=== PATIENT | female | born 1985 | race Caucasian/White ===

== ENCOUNTER 2022-11-07 07:56 | Inpatient (IN) ==
[2022-11-07] MEDS ORDERED: LABETALOL HCL 100 MG TAB ONE (08:58)
[2022-11-07] MEDS ORDERED: LACTATED RINGER'S 1,000 ML IV PRN (09:23)
[2022-11-07] MEDS ORDERED: OXYTOCIN 30 UNITS/500 ML BAG IV PRN (09:23)
[2022-11-07] MEDS ORDERED: LIDOCAINE 1% LOCAL 20 ML VIAL INFIL PRN (09:23)
--- NOTE | 2022-11-07 09:35 | Anesthesiology Consultation ---
Date of Service November 07, 2022 Assessment & Plan (1) Encounter for pre-operative examination: Chart Review Chart Review: Acceptable Risk for Surgery and Patient NOT seen in Pre Admission Testing History Height/Weight Height: 5 ft 6 in Weight: 83.007 kg Allergies Allergy/AdvReac Type Severity Reaction Status Date / Time augmentin Allergy Rash Uncoded 08/06/22 09:32 Medications Home Medications Medication Instructions Recorded Confirmed Last Taken prenat.vits,abdoulaye,rrs-[id number] 1 tab PO DAILY 04/20/22 11/04/22 11/07/22 08:00 labetalol 200 mg tablet 200 mg PO TID 11/04/22 11/07/22 11/07/22 09:00 200 nifedipine 30 mg tablet,extended 30 mg PO DAILY 11/04/22 11/04/22 11/06/22 21:00 release 24 hr (Procardia XL) Past Medical History Medical History No pertinent past medical history Past Family History Family History Father Hypertension Past Surgical History Surgical History H/O oral surgery Hx of section S/P wisdom tooth extraction Social History Smoking Status: Never smoker Do You Dip or Chew Tobacco: No Hx Alcohol Use: No Hx Substance Use: No substance use type: does not use Physical Exam Vital Signs Last Vital Signs Temp 99.5 F 11/07/22 08:15 Pulse 96 H 11/07/22 08:15 Resp 18 11/07/22 08:15 BP 134/83 11/07/22 08:15
[2022-11-07] MEDS ORDERED: CITRIC ACID/SODIUM CITRATE 15 ML UDC PO STA (09:36)
--- NOTE | 2022-11-07 09:40 | History & Physical Report ---
Date of Service November 07, 2022 History of Present Illness Chief Complaint: Intrauterine 37 weeks 3 days. Vaginal bleeding. Hypertension controlled on 2 different medications Primary Care Provider: NO PCP Patient is a 37-year-old 2 para 1. Her first was complicated by worsening hypertension failed induction and delivery at 38 weeks by section. At this time she delivered a live female infant 5 pounds 7ounces. Her last menstrual period for this is February 20, 2022. Her due date for this is 11/26/2022. This has been complicated by worsening hypertension. At this time she is on Procardia 30 mg XL and labetalol 200 mg 3 times a day. She called stating that she had vaginal bleeding. She was brought to maternity and placed on the monitor. Pelvic exam revealed a moderate amount of bleeding. And an unripe cervix. Patient is presently being scheduled for repeat section. Allergies Allergy/AdvReac Type Severity Reaction Status Date / Time augmentin Allergy Rash Uncoded 08/06/22 09:32 Home Medications Medication Instructions Recorded Confirmed Type prenat.vits,abdoulaye,pcd-rrwg-jajvf 1 tab PO DAILY 04/20/22 11/04/22 History labetalol 200 mg tablet 200 mg PO TID 11/04/22 11/07/22 History nifedipine 30 mg tablet,extended 30 mg PO DAILY 11/04/22 11/04/22 History release 24 hr (Procardia XL) Past Med/Surg History Medical History (Updated 11/07/22 @ 09:35 by Robert Pride DO) No pertinent past medical history Surgical History H/O oral surgery Hx of section S/P wisdom tooth extraction Family History Father Hypertension Social History Smoking Status: Never smoker Second Hand Exposure: No; Do You Dip or Chew Tobacco: No; Hx Alcohol Use: No Hx Substance Use: No Preferred Language: Setswana Desk Manager Required: No Beliefs That Will Affect Care: None marital status: marital status details: Man (35) [phone] Current Living Situation: Spouse Current Living Situation Comment: - Man, Daughter- Paige- 3 y/o current occupational status: employed current occupation: self employed Feels Safe at Home: Yes Assistive Devices: None Physical Exam Physical Exam: Patient is well-developed well-nourished 37-year-old white female alert oriented x3 in no acute distress. Heart had a regular rhythm S1 and S2 were normal. Lungs were clear to auscultation and percussion. Ears had a normal light reflex bilaterally. Trachea was midline. There was no adenopathy. Abdomen was soft and nontender. Gravid uterus consistent with a 37 weeks gestational size fetus. Well-healed Pfannenstiel incisional scar. No CVA tenderness. No calf tenderness. Pelvic exam revealed a vertex presentation cervix was posterior closed and uneffaced. There was a moderate amount of bleeding present. Results & Data Results & Data Vital Signs (Past 12 Hours) Vital Signs Temp Pulse Resp BP 11/07/22 08:10 96 H 134/83 11/07/22 08:15 37.5 C 96 H 18 134/83
[2022-11-07] MEDS ORDERED: ONDANSETRON INJ 2 MG/ML 2 ML VIAL ONE (09:54)
[2022-11-07] MEDS ORDERED: KETOROLAC 30 MG/ML VIAL ONE (09:54)
[2022-11-07] MEDS ORDERED: MoRPHine SULFATE PF 1 MG/ML 10 ML AMP/VIAL ONE (09:54)
[2022-11-07] MEDS ORDERED: OXYTOCIN 10 UNITS/ML VIAL ONE (09:54)
[2022-11-07] MEDS ORDERED: fentaNYL citrate PF 100 MCG/2 ML VIAL ONE (09:54)
[2022-11-07] MEDS ORDERED: PHENYLEPHRINE HCL 10 MG/ML VIAL ONE (09:54)
[2022-11-07 09:58] LABS: Hematocrit (blood only) 39.1 % (37.0-47.0); Hemoglobin 13.4 g/dl (12.0-16.0); Mean Corpuscular Hemoglobin 30.7 pg (25.0-34.0); Mean Corpuscular Hgb Conc 34.3 g/dL (32.0-36.0); Mean Corpuscular Volume 89.5 fL (80.0-100.0); Mean Platelet Volume 10.1 fL (9.4-12.4); Platelet Count 210 K/uL (130-400); RDW Coefficient of Variation 12.9 % (11.5-14.5); RDW Standard Deviation 42.5 fL (36.4-46.3); Red Blood Count 4.37 M/uL (4.20-5.40); White Blood Count 7.88 K/ul (4.8-10.8)
[2022-11-07] MEDS ORDERED: cefOXitin 2,000 MG in DEXTROSE 5% 50 ML IV ONE (10:00)
[2022-11-07] MEDS ORDERED: ONDANSETRON INJ 2 MG/ML 2 ML VIAL IV PRN ×2 (10:56→11:40)
[2022-11-07] MEDS ORDERED: LACTATED RINGER'S 500 ML IV PRN (10:56)
[2022-11-07] MEDS ORDERED: diphenhydrAMINE 50 MG/ML VIAL IV PRN (10:56)
[2022-11-07] MEDS ORDERED: ePHEDrine sulfate 50 MG/ML AMP IV PRN (10:56)
[2022-11-07] MEDS ORDERED: NALOXONE HCL 1 MG in SODIUM CHLORIDE 0.9% 1000ML 1,000 ML IV PRN (10:56)
[2022-11-07] MEDS ORDERED: NALBUPHINE HCL INJ 10 MG/ML AMP IV PRN (10:56)
[2022-11-07] MEDS ORDERED: HYDROmorphone INJ 0.5 MG/0.5 ML SYR IV PRN (10:56)
[2022-11-07] MEDS ORDERED: MoRPHine SULFATE PF 1 MG/ML 10 ML AMP/VIAL INT SPINAL ONE (10:56)
[2022-11-07] MEDS ORDERED: NALOXONE HCL 0.08 MG in SYRINGE 1.8 ML IV PRN (10:56)
[2022-11-07] MEDS ORDERED: NALOXONE HCL 0.4 MG/1 ML VIAL/CARP IV PRN (10:56)
[2022-11-07] MEDS ORDERED: NO NARCOTICS OR SEDATIVES SCH (11:00)
[2022-11-07] MEDS ORDERED: SODIUM CHLORIDE 0.9% 1000ML 1,000 ML IV SCH (11:00)
[2022-11-07] MEDS ORDERED: DC INTRASPINAL MORPHINE SCH (11:00)
[2022-11-07] MEDS ORDERED: OXYTOCIN 10 UNITS/ML 10ML VIAL IM ONE (11:17)
[2022-11-07] MEDS ORDERED: HYDROCORTISONE ACETATE 25 MG SUPP PR PRN (11:40)
[2022-11-07] MEDS ORDERED: MAGNESIUM HYDROXIDE SUSP 30 ML UDC PO PRN (11:40)
[2022-11-07] MEDS ORDERED: DIPHTHERIA/TETANUS/PERTUSSIS Vaccine (Tdap, Age 7+yrs) 0.5mL SYR/VL IM ONE (11:40)
[2022-11-07] MEDS ORDERED: SENNA 8.6 MG TAB PO PRN (11:40)
[2022-11-07] MEDS ORDERED: BENZOCAINE 20% SPRY 85 APPLN/85 GM CAN EXT PRN (11:40)
[2022-11-07] MEDS ORDERED: LACTATED RINGER'S 1,000 ML IV SCH (11:45)
[2022-11-07] MEDS ORDERED: ACETAMINOPHEN 1,000 MG/100 ML VIAL IV PRN (11:48)
--- NOTE | 2022-11-07 11:59 | Anesthesiology Progress Note ---
Date of Service November 07, 2022 Anesthesia Post Procedure Vital Signs Vital Signs: Temp Pulse Resp BP Pulse Ox 11/07/22 11:54 75 99 11/07/22 11:49 84 97 11/07/22 11:44 80 120/67 98 11/07/22 08:10 96 H 134/83 11/07/22 08:15 99.5 F 96 H 18 134/83 Transfer of Care Handoff Completed per policy Notes Mental Status: alert / awake / arousable and participated in evaluation Patient Amnestic to Procedure: No Nausea / Vomiting: adequately controlled Pain: adequately controlled Airway Patency, RR, SpO2: stable & adequate BP & HR: stable & adequate Hydration State: stable & adequate Neuraxial Anesthesia: was administered and sensory block is resolving Anesthetic Complications: no major complications apparent and Pt Satisfied with anesthetic care
[2022-11-07] MEDS ORDERED: LABETALOL HCL 200 MG TAB PO SCH (12:00)
--- NOTE | 2022-11-07 12:06 | Operative Report ---
Post Operative Report Procedure Date: November 07, 2022 Pre & Post Diagnosis: Intrauterine 37 weeks 3 days. Hypertension controlled on 2 different medications. Vaginal bleeding. Delivered live female infant. [] Time Out: I identified the patient and participated in the time-out. Procedure: Repeat low segment section. Surgeon: Dr. Maldonado Per Diem: Dr. Tinoco Estimated Blood Loss: [500 mL] Findings: [] Intrauterine thin lower uterine segment. Specimens [] Placenta Description of Procedure: [] Patient was brought to the OR table correctly identified by armband and conversation. Spinal anesthesia was administered. Han catheter was inserted aseptically into the bladder. Lower abdomen was painted with an alcohol-based sterilizing solution. Patient was draped in the usual sterile fashion. Level of the anesthesia was checked. Timeout was performed. Incision was made through her previous Pfannenstiel scar. Incision was carried down to the anterior fascia with sharp dissection. Hemostasis was secured by electrocauterization. Fascia was incised transversely. from the rectus muscle by blunt and sharp dissection. Rectus muscle were in the midline. Peritoneum was carefully raised and entered. Bladder retractor was used to expose the lower uterine segment. There was a thin area on the left side. Incision was made above the vesicouterine fold. Bladder was advanced out of the lower uterine segment. Lower uterine segment was scarred with a knife. Entered with a blunt scissors. Clear amniotic fluid was noted at this time. A pectus retractor was applied to the head. With fundal pressure the head was delivered. A nuchal cord x1 was noted. was delivered breathed and cried spontaneously. Umbilical cord was allowed to pulse for 1 minute. Umbilical cord was clamped. Cord blood sample was taken. The infant was attended by the curriculum developer who is scrubbed and present at the time of the delivery. Placenta was removed manually. Uterus tubes and ovaries were brought out through the incision. Tubes and ovaries were inspected and found to be normal. Uterus was cleansed with a clean sponge. The muscular layer was approximated with a continuous interlocking suture of heavy chromic. A layer wa s approximated over this. The second layer was approximated with a horizontal suture of heavy Vicryl. 3 interrupted [id number] sutures of Vicryl were used to complete the approximation. Careful inspection revealed good hemostasis. Pelvis was cleansed of all blood clots and debris. Uterus was reinserted into the abdominal cavity. Uterine incision was checked and found to be hemostatic. Careful anatomical approximation of the anterior abdominal wall was performed. Peritoneum was used to approximate the peritoneal layer the rectus muscles were approximated with interrupted [id number] sutures of chromic the fascia was closed with continuous interlocking suture of Vicryl. The incision was washed clean. Subcutaneous layer was approximated with a continuous plain suture. Skin edges were approximated with staple clips. Patient tolerated the procedure well. Left the OR in good condition. Attestation: I attest to the content of the Intraoperative Record and any orders documented therein. Any exceptions are noted below.
[2022-11-07] MEDS: OXYTOCIN 10 UNITS in LACTATED RINGER'S 1,000 ML IV SCH ×2 (13:59→23:09)
[2022-11-07] MEDS: KETOROLAC 30 MG/ML VIAL IV PRN (17:36)
[2022-11-07] MEDS: SIMETHICONE 80 MG CHEW PO SCH ×2 (19:20→20:31)
[2022-11-07] MEDS: DOCUSATE SODIUM 100 MG CAP PO SCH (20:31)
[2022-11-07] MEDS ORDERED: LABETALOL HCL 200 MG TAB PO PRN (21:00)
[2022-11-07] MEDS ORDERED: NIFEdipine EXTENDED REL 30 MG TABCR PO PRN (21:00)
[2022-11-08] MEDS: KETOROLAC 30 MG/ML VIAL IV PRN (00:09)
[2022-11-08] MEDS ORDERED: MEPERIDINE HCL 50 MG/ML CARP IV PRN (05:00)
[2022-11-08] MEDS ORDERED: KETOROLAC 30 MG/ML VIAL IV PRN (05:00)
[2022-11-08] MEDS ORDERED: PROMETHAZINE HCL 25 MG in SODIUM CHLORIDE 0.9% 50 ML IV PRN (05:00)
[2022-11-08] MEDS ORDERED: diphenhydrAMINE 50 MG/ML VIAL IV PRN (05:00)
[2022-11-08] MEDS ORDERED: ZOLPIDEM TARTRATE 5 MG TAB PO PRN (05:00)
[2022-11-08] MEDS ORDERED: diphenhydrAMINE Capsule 25 MG CAP PO PRN (05:00)
[2022-11-08 06:54] LABS: Basophils # (auto) 0.04 K/uL (0-0.2); Basophils % (auto) 0.4 %; Eosinophils # (auto) 0.13 K/uL (0-0.50); Eosinophils % (auto) 1.3 %; Hematocrit (blood only) 32.9 % (37.0-47.0); Hemoglobin 11.3 g/dl (12.0-16.0); Immature Granulocytes # (auto) 0.06 K/uL (0.01-0.20); Immature Granulocytes % (auto) 0.6 %; Lymphocytes # (auto) 1.39 K/uL (1.2-3.4); Lymphocytes % (auto) 13.8 %; Mean Corpuscular Hgb Conc 34.3 g/dL (32.0-36.0); Mean Corpuscular Volume 90.4 fL (80.0-100.0); Mean Platelet Volume 10.1 fL (9.4-12.4); Monocytes # (auto) 1.15 K/uL (0.11-0.59); Monocytes % (auto) 11.4 %; Neutrophils # (auto) 7.29 K/uL (1.40-6.50); Neutrophils % (auto) 72.5 %; Platelet Count 165 K/uL (130-400); RDW Coefficient of Variation 13.1 % (11.5-14.5); Red Blood Count 3.64 M/uL (4.20-5.40); White Blood Count 10.06 K/ul (4.8-10.8)
[2022-11-08] MEDS: SIMETHICONE 80 MG CHEW PO SCH ×2 (07:55→12:10)
[2022-11-08] MEDS: DOCUSATE SODIUM 100 MG CAP PO SCH (07:55)
[2022-11-08] MEDS: oxyCODONE/ACETAMINOPHEN 5mg/325mg TAB PO PRN ×3 (07:55→15:38)
[2022-11-08] MEDS: IBUPROFEN 600 MG TAB PO PRN ×3 (07:56→15:38)
[2022-11-08] MEDS ORDERED: FERROUS SULFATE 325 MG TAB PO SCH (08:00)
[2022-11-08] MEDS ORDERED: PRENATAL VITAMIN 1 TAB PO SCH (08:00)
--- NOTE | 2022-11-08 08:23 | Obstetrical Progress Note ---
Date of Service November 08, 2022 Assessment & Plan Admission and Anticipated Discharge Date Admission Date: November 07, 2022 OB Progress Note abdomen soft and non tender bandage removed incision is clean and dry no calf tenderness ambulating well vaginal bleeding scant hgb 11.3 Results & Data Vital Signs (Past 12 Hours) Vital Signs Temp Pulse Resp BP Pulse Ox O2 Del Method 11/08/22 08:07 36.8 C 80 16 135/83 Room Air 11/08/22 03:00 18 98 11/08/22 02:00 18 96 11/08/22 00:00 18 96 11/08/22 04:00 18 97 11/08/22 04:30 18 98 11/08/22 03:40 36.7 C 81 18 129/80 98 Room Air 11/07/22 23:00 18 97 11/07/22 22:00 18 96 11/07/22 23:10 36.8 C 87 18 129/78 100 Room Air 11/07/22 21:00 18 98
--- NOTE | 2022-11-08 08:34 | Discharge Summary ---
Date of Service November 08, 2022 Admission HPI Per Admitting Provider Patient is a 37-year-old 2 para 1. Her first was complicated by worsening hypertension failed induction and delivery at 38 weeks by section. At this time she delivered a live female 5 pounds 7ounces. Her last menstrual period for this is February 20, 2022. Her due date for this is 11/26/2022. This has been complicated by worsening hypertension. At this time she is on Procardia 30 mg XL and labetalol 200 mg 3 times a day. She called stating that she had vaginal bleeding. She was brought to maternity and placed on the monitor. Pelvic exam revealed a moderate amount of bleeding. And an unripe cervix. Patient is presently being scheduled for repeat section. Discharge Data Consultations 11/07/22 09:23 Consult Anesthesiology Stat Procedures Performed Operation Date: 11/07/22 10:00 Actual Procedures p Section in LD for delivery of live female child at 1057(Bilateral) - Serjio Maldonado MD
--- NOTE | 2022-11-08 14:47 | Discharge Summary ---
Date of Service November 08, 2022 Admission HPI Per Admitting Provider Patient is a 37-year-old 2 para 1. Her first was complicated by worsening hypertension failed induction and delivery at 38 weeks by section. At this time she delivered a live female 5 pounds 7ounces. Her last menstrual period for this is February 20, 2022. Her due date for this is 11/26/2022. This has been complicated by worsening hypertension. At this time she is on Procardia 30 mg XL and labetalol 200 mg 3 times a day. She called stating that she had vaginal bleeding. She was brought to maternity and placed on the monitor. Pelvic exam revealed a moderate amount of bleeding. And an unripe cervix. Patient is presently being scheduled for repeat section. Specialty Data Specialty Data Patient is a 37-year-old 2 para 2. She has a history of hypertension with her prior . Requiring medication. She had a failed induction with her first . Eventually ended up with a at approximately 38 weeks gestation. Present has been complicated by hypertension which was controlled with a combination of Procardia XL and labetalol. Towards the end of her required increasing amounts of blood pressure medication. She was followed with with a nonstress test which was reactive. The day of admission she had called because of vaginal bleeding. Pelvic exam revealed an unripe cervix. And a moderate amount of bleed. At this time she was 37 weeks and 3 days gestational age. Due to the vaginal bleeding and worsening hypertension a section was decided upon. She underwent low segment section with an estimated blood loss of 500 mL. She received prophylactic antibiotics in the form of Mefoxin 2 g. She did well overnight her postoperative hemoglobin was over 13. Her first postoperative day she requested discharge. Her bandage was removed the incision looked clean and dry. She was ambulating well without difficulty. Pain was well controlled. She was told to return to the office in 1 week for removal of ramona. She was given the usual post instruction packet. Discharge Data Consultations 11/07/22 09:23 Consult Anesthesiology Stat Procedures Performed Operation Date: 11/07/22 10:00 Actual Procedures p Section in LD for delivery of live female child at 1057(Bilateral) - Serjio Maldonado MD
[2022-11-08] MEDS ORDERED: bisacodyL 5 MG TABEC PO SCH (20:00)
[2022-11-09] MEDS ORDERED: bisacodyL 10 MG SUPP PR PRN (11:40)
== END 2022-11-08 17:16 | disposition home or self-care (01) | DRG 788 ==
LOC: OPB 07:56 → 4S1 07:59 → 4E2 16:05